=== PATIENT | male | born 1965 | race Caucasian/White ===

== ENCOUNTER → 2020-12-26 12:42 | Outpatient (CLI) | payer BC ==
[2020-10-18 12:25] VITALS: BMI 21.2
[~2020-12-26 12:42] MED LIST: DULCOLAX10 MG/SUPP RC; FLAGYL 500500 MG/100 IV; FLAGYL500 MG PO; FLORAJEN3 CAPS460 MG PO; HYDROCODON-ACE1 EAC7 PO; IPRAT-ALBUT 0.5-3 ML UPD; LEVOFLOXAC500 MG/100 IV; LEVOFLOXACIN500 MG PO; NICODERM CQ1 EAC3 TRANSDERM; PROTONIX IV IV; PROTONIX40 MG PO; ZOFRAN INJ IV
== END | disposition home or self-care (01) ==
LOC: D.CT 12:42
PROVIDERS: ATTEND Surgery
DX: K85.91 Acute pancreatitis with uninfected necrosis, unspecified (principal)

== ENCOUNTER 2021-01-13 08:26 | Inpatient (IN) | payer BC ==
[2021-01-13] VITALS (14 sets, daily range): BP systolic 97–129; BP diastolic 69–82; BMI 22.7; BMI 21.6
[~2021-01-13] VITALS: Ht 190.5 cm; Wt 78.5 kg
[2021-01-13 10:55] LABS: HEMOGLOBIN 12.3 g/dL (13.5-17.5); MCH 24.7 pg (26.0-34.0); MCHC 30.8 g/dL (31.0-37.0); MCV 80.3 fL (80.0-100.0); MEAN PLATELET VOLUME 9.7 fL (7.4-10.4); RBC 4.98 10x6/uL (4.20-6.10); RDW 16.3 % (11.5-14.5); WBC 9.7 10x3/uL (4.8-10.8)
[2021-01-13 11:06] LABS: CALC OSMOLALITY 277 mosm/kg (275-300); CALCIUM 9.3 mg/dL (8.5-10.1); CARBON DIOXIDE 29.8 mmol/L (21.0-32.0); CHLORIDE - SERUM 104 mmol/L (98-107); CREATININE - SERUM 0.8 mg/dL (0.6-1.3); GLUCOSE 102 mg/dL (74-106); POTASSIUM - SERUM 4.3 mmol/L (3.5-5.1); SODIUM 140 mmol/L (136-145); UREA NITROGEN 10 mg/dL (7-18); eGFR NON AFRICAN AMERICAN > 90 mL/min (90-120)
[2021-01-13 11:12] LABS: APTT 34.2 SECONDS (22.8-39.4); INR 1.2 (0.85-1.17); PROTIME 14.1 SECONDS (11.6-15.0)
--- NOTE | 2021-01-13 19:33 | NUR ---
UPRIGHT IN BED, EYES CLOSED. BREATHING EVEN AND NONLABORED. NO S/S OF DISTRESS NOTED AT THIS TIME. NG TUBE TO THE LEFT NARE TO LOWER INTERMITTENT SUCTION. KELSEY IN PLACE WITH YELLOW URINE. BED IN LOWEST POSITION, BED RAILS X2, CALL LIGHT WITHIN REACH. WILL CONTINUE POC.
--- NOTE | 2021-01-13 19:45 | NUR ---
0700 BEDSIDE REPORT RECEIVED AWAKE, ALERT SITTING UP IN BED TRACHE # 6 SHILEY WITH O2 PER TRACHE COLLAR AT 30% N WEARING SCD UNABLE TP PERFORM INCENTIVE SPIROMETER
--- NOTE | 2021-01-13 19:50 | NUR ---
1445 RECEIVED PATIENT FROM PACU VIA STRETCHER REPORT FROM [facility] [place] DRESSING INTACT WITH NO DRAINAGE NOTED ABDOMINAL BINDER IN PLACE INITIATED FREQUENT POST OP VITAL SIGNS DAISY X 1 NOTED WITH BLOODY DRAINAGE PATIENT [id number] BUT AWAKENS TO ANSWER ADMIT QUESTIONS HIS BROTHER REMAINS AT BEDSIDE
--- NOTE | 2021-01-13 21:37 | NUR ---
REQUESTED PRN MORPHIN FOR 06/06 PAIN. CHECKED BLOOD PRESSURE, 119/83. ADMINISTERED MORPHINE. TOLERATED WELL. RESTING UPRIGHT IN BED. ASKED FOR BACKPACK, NOT IN ROOM. WILL CALL ER AND TRY TO LOCATE. DENIES FURTHER NEEDS AT THIS TIME. WILL CONTINUE POC.
[2021-01-14 04:00] VITALS: BP 135/88
[2021-01-14 06:23] LABS: BASOPHILS 0 % (0-2); EOSINOPHILS 0 % (0-7); HEMATOCRIT 34.6 % (42.0-54.0); HEMOGLOBIN 10.4 g/dL (13.5-17.5); IMMATURE GRANULOCYTES 0.3 % (0-5); LYMPHOCYTE ABS# 0.99 10x3/uL (1.32-3.57); LYMPHOCYTES 5.5 % (15-50); MCH 24.1 pg (26.0-34.0); MCHC 30.1 g/dL (31.0-37.0); MCV 80.3 fL (80.0-100.0); MEAN PLATELET VOLUME 10.7 fL (7.4-10.4); MONOCYTES 10.2 % (2-11); NEUTROPHIL ABS# 15.22 10x3/uL (1.78-5.38); RBC 4.31 10x6/uL (4.20-6.10); RDW 15.9 % (11.5-14.5)
[2021-01-14 06:30] LABS: ALBUMIN 2.8 g/dL (3.4-5.0); ALKALINE PHOSPHATASE 76 U/L (30-120); ALT (SGPT) 18 U/L (10-68); BILIRUBIN - TOTAL 0.38 mg/dL (0.2-1.3); CALC OSMOLALITY 277 mosm/kg (275-300); CALCIUM 8.8 mg/dL (8.5-10.1); CARBON DIOXIDE 30.2 mmol/L (21.0-32.0); CHLORIDE - SERUM 102 mmol/L (98-107); CREATININE - SERUM 0.8 mg/dL (0.6-1.3); GLUCOSE 144 mg/dL (74-106); POTASSIUM - SERUM 4.9 mmol/L (3.5-5.1); PROTEIN - SERUM 6.3 g/dL (6.4-8.2); SODIUM 137 mmol/L (136-145); eGFR NON AFRICAN AMERICAN > 90 mL/min (90-120)
[2021-01-14 06:32] LABS: LIPASE 26 U/L (73-393); UREA NITROGEN 16 mg/dL (7-18)
[2021-01-14 06:47] LABS: PLATELET COUNT 319 10x3/uL (130-400); WBC 18.1 10x3/uL (4.8-10.8)
[2021-01-14 08:52] VITALS: BP 113/74
[2021-01-14 13:07] VITALS: BP 132/74
[2021-01-14 14:26] VITALS: Ht 190.5 cm; Wt 78.5 kg
[2021-01-14 16:53] VITALS: BP 108/63
--- NOTE | 2021-01-14 18:29 | NUR ---
0700 AWAKE ALERT IN BED KELSEY CATH DRAINNG CLEAR YELLOW URINE
--- NOTE | 2021-01-14 18:30 | NUR ---
1000 UP TO BEDSIDE COMMODE SOFT BROWN BM WITH HARD BALLS NOTED ASSSISTED UP TO RECLINER CHAIR CHASE WELL
--- NOTE | 2021-01-14 18:31 | NUR ---
1300 BM OF HARD BALLS ASSIST X [address] KELLER ROUNDRONNIE ON PATIENT STATED HE WILL HAVE NGT AT LEAST 2 MORE DAYS
--- NOTE | 2021-01-14 18:32 | NUR ---
1700 REMAINS NPO ASSISTED BACK TO BED
[2021-01-14 20:00] VITALS: BP 121/73
--- NOTE | 2021-01-15 02:43 | NUR ---
I have reviewed this patient and I concur with the Shift Assessment completed by the Licensed Practical Nurse today this shift.
[2021-01-15 04:00] VITALS: BP 109/77
--- NOTE | 2021-01-15 06:40 | NUR ---
OLW SALOMON THIS AM
[2021-01-15 08:29] VITALS: BP 111/64
[2021-01-15 12:04] VITALS: BP 110/73
[2021-01-15 17:50] VITALS: BP 108/55
[2021-01-15 20:00] VITALS: BP 150/72
--- NOTE | 2021-01-16 03:07 | NUR ---
PT ALERT AND AWAKE SITTING UP IN CHAIR. PT REQUEST TO STAND AND WALK AROUND UNIT DID 5 LAPS AND BACK IN BED. PT HAS NO NEEDS AT THE MOMENT.
[2021-01-16 04:00] VITALS: BP 103/728
[2021-01-16 06:23] LABS: BASOPHILS 0 % (0-2); EOSINOPHILS 0.2 % (0-7); HEMATOCRIT 28.2 % (42.0-54.0); HEMOGLOBIN 8.4 g/dL (13.5-17.5); IMMATURE GRANULOCYTES 0.2 % (0-5); LYMPHOCYTE ABS# 0.94 10x3/uL (1.32-3.57); LYMPHOCYTES 10.8 % (15-50); MCH 23.8 pg (26.0-34.0); MCHC 29.8 g/dL (31.0-37.0); MCV 79.9 fL (80.0-100.0); MEAN PLATELET VOLUME 10.2 fL (7.4-10.4); MONOCYTES 14.8 % (2-11); NEUTROPHIL ABS# 6.44 10x3/uL (1.78-5.38); RBC 3.53 10x6/uL (4.20-6.10); RDW 16.3 % (11.5-14.5)
[2021-01-16 06:30] LABS: PLATELET COUNT 255 10x3/uL (130-400); WBC 8.7 10x3/uL (4.8-10.8)
[2021-01-16 06:51] LABS: ALBUMIN 2.7 g/dL (3.4-5.0); ALKALINE PHOSPHATASE 71 U/L (30-120); ALT (SGPT) 11 U/L (10-68); BILIRUBIN - TOTAL 0.44 mg/dL (0.2-1.3); CALC OSMOLALITY 276 mosm/kg (275-300); CALCIUM 9.1 mg/dL (8.5-10.1); CARBON DIOXIDE 29.8 mmol/L (21.0-32.0); CHLORIDE - SERUM 102 mmol/L (98-107); CREATININE - SERUM 0.7 mg/dL (0.6-1.3); GLUCOSE 113 mg/dL (74-106); LIPASE 31 U/L (73-393); POTASSIUM - SERUM 3.5 mmol/L (3.5-5.1); PROTEIN - SERUM 6.4 g/dL (6.4-8.2); SODIUM 139 mmol/L (136-145); UREA NITROGEN 8 mg/dL (7-18); eGFR NON AFRICAN AMERICAN > 90 mL/min (90-120)
[2021-01-16 09:12] VITALS: BP 110/59
[2021-01-16 13:46] VITALS: BP 102/73
[2021-01-16 17:33] VITALS: BP 111/71
--- NOTE | 2021-01-17 01:43 | NUR ---
PT SITTING IN BED WATCHING TV. PT HAS NO COMPLAINTS AT THE MOMENT. WILL CONT WITH PLAN OF CARE.
--- NOTE | 2021-01-17 05:14 | NUR ---
I have reviewed this patient and I concur with the Shift Assessment completed by the Licensed Practical Nurse today this shift.
--- NOTE | 2021-01-17 07:30 | NUR ---
RECIEVED BEDSIDE REPORT. IN BED, AROUSES TO VOICE. DENIES NEEDS AT THIS TIME. BED LOW POSITION, CALL LIGHT IN REACH. WILL CONTINUE TO MONITOR.
[2021-01-17] MEDS ORDERED: LEVOFLOXACIN500 MG PO (10:18)
[2021-01-17] MEDS ORDERED: TYLENOL W/CODEI1 TAB PO (10:18)
[2021-01-17 10:42] VITALS: BP 110/78
--- NOTE | 2021-01-17 11:32 | MORECARE ---
CASE MANAGEMENT DISCHARGE SUMMARY PATIENT: TRACY RODRIGUEZ UNIT: [id number] ADM DATE: 01/13/21 AGE: 55 : 63 SEX: M ROOM/BED: D.2230 AUTHOR: MANOLO STRONG PHYSICIAN: REFERRING PHYSICIAN: KARSON KELLER MD DATE OF SERVICE: 01/17/21 Case Management Discharge Planning Summary DCP REVIEW SUMMARY ANTICIPATED D/C DATE: EXPECTED LOS : CASE STATUS: DCP Initiated INITIAL REVIEW: 01/13/2021 INITIAL REVIEWER: Yeimy Mcintosh FINAL DISCHARGE DISPOSITION: : FINAL REVIEWER: FINAL REVIEW DATE: DCP Focus Questions & Answers QUESTION: ANSWER : PROVIDER NETWORKING REVIEW DATE: 01/17/2021 SERVICE TYPE: Home Health Care REVIEWER: Yeimy Mcintosh PATIENT: TRACY RODRIGUEZ ENCOUNTER: [id number] MEDICAL RECORD#: [id number] ADMISSION DATE: 01/13/2021 DISCHARGE DATE: ATTENDING MD: : AGE: 55 MARITAL STATUS: S DC PLAN ID: [id number] FACILITY: [facility] PRINTED ON: 01/17/21 11:32 CT All edits/amendments must be made on the electronic document DICTATION DATE: 01/17/211131 CONSUMER SCIENCE TEACHER: DM 01/17/21 113 RPT#: [id number] DC DATE: STATUS: ADM IN [facility] [address] [place] [address] END OF REPORT
--- NOTE | 2021-01-17 11:44 | MORECARE ---
CASE MANAGEMENT DISCHARGE SUMMARY PATIENT: TRACY RODRIGUEZ UNIT: [id number] ADM DATE: 01/13/21 AGE: 55 : 63 SEX: M ROOM/BED: D.2230 AUTHOR: MANOLO STRONG PHYSICIAN: REFERRING PHYSICIAN: KARSON KELLER MD DATE OF SERVICE: 01/17/21 Case Management Discharge Planning Summary COMMENTS ENTERED DATE: 01/17/21 11:39 CT COMMENT TYPE: Discharge Planning REVIEWER: Yeimy Mcintosh CM met with patient at bedside after obtaining verbal consent. CM discussed availability / needs of home health, REHAB and medical equipment. Patient states uses no equipment at home. He is current with care 4 home health and plans to resume when discharged. His pcp is Dr. Rao and he uses [facility]. States he is staying at his brother's address and home health is seeing him there. He denies any dc needs. I have faxed care 4 his discharge. Patient has a dc order in for today. CM tofollow and assist as needed. DCP REVIEW SUMMARY ANTICIPATED D/C DATE: EXPECTED LOS : CASE STATUS: DCP Initiated INITIAL REVIEW: 01/13/2021 INITIAL REVIEWER: Yeimy Mcintosh FINAL DISCHARGE DISPOSITION: : FINAL REVIEWER: FINAL REVIEW DATE: DCP Focus Questions & Answers DCP Screen QUESTION: ANSWER High Risk Factors: : Poor health literacy DCP Evaluation QUESTION: ANSWER Patient's ability to cope with chronic illness : d. No chronic illness Would patient like to participate in any Care Coordination programs (if applicable): : Not applicable Mental health screen: : No mental health history DCP Re-evaluation QUESTION: ANSWER Would patient like to participate in any Care Coordination programs (if applicable): : Not applicable PROVIDER NETWORKING REVIEW DATE: 01/17/2021 SERVICE TYPE: Home Health Care REVIEWER: Yeimy Mcintosh PATIENT: TRACY RODRIGUEZ ENCOUNTER: [id number] MEDICAL RECORD#: [id number] ADMISSION DATE: 01/13/2021 DISCHARGE DATE: ATTENDING MD: ALE: AGE: 55 MARITAL STATUS: S DC PLAN ID: [id number] FACILITY: [facility] PRINTED ON: 01/17/21 11:44 CT All edits/amendments must be made on the electronic document DICTATION DATE: 01/17/21 1144 BULK FILLER: DM 01/17/21 1144 RPT#: [id number] DC DATE: STATUS: ADM IN [facility] [address] [place] [address] END OF REPORT
[2021-01-17 13:29] VITALS: BP 123/78
--- NOTE | 2021-01-17 13:30 | NUR ---
DISCHARGE PAPERS COMPLETE. NO FURTHER QUESTIONS. IV CATH REMOVED, CATH TIP INTACT. WAITING ON RIDE TO GET HERE.
--- NOTE | 2021-01-17 14:28 | NUR ---
GATHERED BELONGINGS. PATIENT LEFT UNIT VIA WHEELCHAIR TO HOME AT THIS TIME.
--- NOTE | 2021-01-20 14:33 | MORECARE ---
CASE MANAGEMENT DISCHARGE SUMMARY PATIENT: TRACY RODRIGUEZ UNIT: [id number] ADM DATE: 01/13/21 AGE: 55 : 63 SEX: M ROOM/BED: D.2230 AUTHOR: MANOLO STRONG PHYSICIAN: REFERRING PHYSICIAN: KARSON KELLER MD DATE OF SERVICE: 01/20/21 Case Management Discharge Planning Summary COMMENTS ENTERED DATE: 01/17/21 11:39 CT COMMENT TYPE: Discharge Planning REVIEWER: Yeimy Mcintosh CM met with patient at bedside after obtaining verbal consent. CM discussed availability / needs of home health, REHAB and medical equipment. Patient states uses no equipment at home. He is current with care 4 home health and plans to resume when discharged. His pcp is Dr. Rao and he uses [facility]. States he is staying at his brother's address and home health is seeing him there. He denies any dc needs. I have faxed care 4 his discharge. Patient has a dc order in for today. CM tofollow and assist as needed. DCP REVIEW SUMMARY ANTICIPATED D/C DATE: EXPECTED LOS : CASE STATUS: DCP Initiated INITIAL REVIEW: 01/13/2021 INITIAL REVIEWER: Yeimy Mcintosh FINAL DISCHARGE DISPOSITION: : FINAL REVIEWER: FINAL REVIEW DATE: DCP Focus Questions & Answers DCP Screen QUESTION: ANSWER High Risk Factors: : Poor health literacy DCP Evaluation QUESTION: ANSWER Patient's ability to cope with chronic illness : d. No chronic illness Would patient like to participate in any Care Coordination programs (if applicable): : Not applicable Mental health screen: : No mental health history DCP Re-evaluation QUESTION: ANSWER Would patient like to participate in any Care Coordination programs (if applicable): : Not applicable PROVIDER NETWORKING REVIEW DATE: 01/17/2021 SERVICE TYPE: Home Health Care REVIEWER: Yeimy Mcintosh PATIENT: TRACY RODRIGUEZ ENCOUNTER: [id number] MEDICAL RECORD#: [id number] ADMISSION DATE: 01/13/2021 DISCHARGE DATE: 01/17/2021 ATTENDING MD: ALE: AGE: 55 MARITAL STATUS: S DC PLAN ID: [id number] FACILITY: [facility] PRINTED ON: 01/20/21 14:33 CT All edits/amendments must be made on the electronic document DICTATION DATE: 01/20/211432 ASSEMBLER HYDRAULIC BACKHOE: CARRIE 01/20/21 143 RPT#: [id number] DC DATE:01/17/21 STATUS: DIS IN [facility] [address] [place] [address] END OF REPORT
--- NOTE | 2021-01-20 17:03 | MORECARE ---
CASE MANAGEMENT DISCHARGE SUMMARY PATIENT: TRACY RODRIGUEZ UNIT: [id number] ADM DATE: 01/13/21 AGE: 55 : 63 SEX: M ROOM/BED: D.2230 AUTHOR: MANOLO STRONG PHYSICIAN: REFERRING PHYSICIAN: KARSON KELLER MD DATE OF SERVICE: 01/20/21 Case Management Discharge Planning Summary COMMENTS ENTERED DATE: 01/17/21 11:39 CT COMMENT TYPE: Discharge Planning REVIEWER: Yeimy Mcintosh CM met with patient at bedside after obtaining verbal consent. CM discussed availability / needs of home health, REHAB and medical equipment. Patient states uses no equipment at home. He is current with care 4 home health and plans to resume when discharged. His pcp is Dr. Rao and he uses [facility]. States he is staying at his brother's address and home health is seeing him there. He denies any dc needs. I have faxed care 4 his discharge. Patient has a dc order in for today. CM tofollow and assist as needed. DCP REVIEW SUMMARY ANTICIPATED D/C DATE: EXPECTED LOS : CASE STATUS: DCP Initiated INITIAL REVIEW: 01/13/2021 INITIAL REVIEWER: Yeimy Mcintosh FINAL DISCHARGE DISPOSITION: : FINAL REVIEWER: FINAL REVIEW DATE: DCP Focus Questions & Answers DCP Screen QUESTION: ANSWER High Risk Factors: : Poor health literacy DCP Evaluation QUESTION: ANSWER Patient's ability to cope with chronic illness : d. No chronic illness Would patient like to participate in any Care Coordination programs (if applicable): : Not applicable Mental health screen: : No mental health history DCP Re-evaluation QUESTION: ANSWER Would patient like to participate in any Care Coordination programs (if applicable): : Not applicable PROVIDER NETWORKING REVIEW DATE: 01/17/2021 SERVICE TYPE: Home Health Care REVIEWER: Yeimy Mcintosh PATIENT: TRACY RODRIGUEZ ENCOUNTER: [id number] MEDICAL RECORD#: [id number] ADMISSION DATE: 01/13/2021 DISCHARGE DATE: 01/17/2021 ATTENDING MD: ALE: AGE: 55 MARITAL STATUS: S DC PLAN ID: [id number] FACILITY: [facility] PRINTED ON: 01/20/21 17:03 CT All edits/amendments must be made on the electronic document DICTATION DATE: 01/20/211701 CANDY CUTTER HAND: CARRIE 01/20/211701 RPT#: [id number] DC DATE:01/17/21 STATUS: DIS IN [facility] [address] [place] [address] END OF REPORT
== END 2021-01-17 14:28 | disposition home health service (06) | DRG 407 ==
LOC: D.OPS 08:26 → D.MS 14:20 → D.OPS 14:21 → D.MS 01-17 14:28
PROVIDERS: Anesthesiology; ADMIT Surgery; ATTEND Surgery
PROC: 0F9G0ZZ Drainage of Pancreas, Open Approach (ICD-10-PCS; 2021-01-13)
PROC: 0FBG0ZZ Excision of Pancreas, Open Approach (ICD-10-PCS; 2021-01-13)
PROC: 0F9 Hepatobiliary System and Pancreas, Drainage (ICD-10-PCS; principal; 2021-01-13 11:15)
DX: K86.3 Pseudocyst of pancreas (principal)